=== PATIENT | male | born 1985 | race Two or more races ===

== ENCOUNTER 2021-02-03 23:43 | Emergency (ER) | payer MEDICAID, OTHER ==
[~2021-02-03] VITALS: Ht 175.3 cm; Wt 81.6 kg
[2021-02-03 23:45] VITALS: BP 132/68
[2021-02-04] MEDS ORDERED: CLINDAMYCIN 600MG IV 50 ML IV ONE (02:15)
[2021-02-04] MEDS ORDERED: SODIUM CHLORIDE 0.9% 1,000 ML IV ONE (02:30)
== END 2021-02-04 04:08 | disposition home or self-care (01) ==
LOC: ER 23:43
DX: S61.431A Puncture wound without foreign body of right hand, initial encounter (principal); L03.113 Cellulitis of right upper limb; F15.10 Other stimulant abuse, uncomplicated; Z88.0 Allergy status to penicillin; W57.XXXA Bitten or stung by nonvenomous insect and other nonvenomous arthropods, initial encounter; Y93.89 Activity, other specified; Y92.89 Other specified places as the place of occurrence of the external cause; Y99.8 Other external cause status
CPT/HCPCS: 96365; 99284; J3490; J7030